=== PATIENT | female | born 2000 | race Two or more races ===

== ENCOUNTER 2023-08-06 18:33 | Emergency (ER) | payer OTHER ==
[~2023-08-06] VITALS: Ht 165.1 cm; Wt 86.4 kg
[2023-08-06 18:55] LABS: COVID AG,FIA SOURCE NASAL SWAB
[2023-08-06 19:14] LABS: INFLUENZA TYPE A NEGATIVE FOR TYPE A (NEGATIVE); INFLUENZA TYPE B NEGATIVE FOR TYPE B (NEGATIVE); SARS-COV2 (COVID) ANTIGEN,FIA Negative (Negative)
[2023-08-06 19:44] VITALS: BP 133/87; PULSE 89; RESP 18; TEMP 98.3
[2023-08-06 20:02] LABS: APPEARANCE,URINE CLEAR (CLEAR); BILIRUBIN,URINE NEGATIVE (NEGATIVE); COLOR,URINE COLORLESS (YELLOW); GLUCOSE, URINE (UA) NEGATIVE (NEGATIVE); KETONES,URINE NEGATIVE (NEGATIVE); LEUKOCYTE ESTERASE ,URINE NEGATIVE (NEGATIVE); NITRATE,URINE NEGATIVE (NEGATIVE); OCCULT BLOOD,URINE TRACE (NEGATIVE); PROTEIN,URINE NEGATIVE (NEGATIVE); SPECIFIC GRAVITIY, URINE 1.006 (1.003-1.030); UROBILINOGEN,URINE <=1.0 mg/dL (<=1.0)
[2023-08-06 20:13] LABS: BACTERIA,URINE Few /HPF (None Seen); SQUAMOUS EPITHELIAL CELL,UR Few /LPF (None Seen)
[2023-08-06] MEDS ORDERED: ACET-2080 PO (20:22)
[2023-08-06] MEDS ORDERED: IBUP-1554 PO (20:22)
[2023-08-06] MEDS ORDERED: GUAIFDM PO (20:22)
[2023-08-06] MEDS: GuaiFENesin/D-METHORPHAN [SUGAR-FREE] 200-20MG/10 ML SYRUP UDCUP PO ONE (20:33)
[2023-08-06] MEDS: ACETAMINOPHEN/CODEINE 300-30 MG TABLET PO ONE (20:33)
[2023-08-06] MEDS: IBUPROFEN 600 MG TABLET PO ONE (20:33)
[2023-08-06] MEDS: ONDANSETRON HCL 4 MG TABLET PO ONE (20:33)
== END 2023-08-06 20:35 | disposition home or self-care (01) ==
LOC: EMS 18:33
DX: J06.9 Acute upper respiratory infection, unspecified (principal); Z20.822 Contact with and (suspected) exposure to COVID-19
CPT/HCPCS: 99284; 87426; 81001; 87804; Q0162